=== PATIENT | female | born 2000 | race Hispanic/Latino ===

== ENCOUNTER 2019-04-17 20:41 | Emergency (ER) | payer OTHER ==
[2019-04-17 21:02] LABS: APPEARANCE,URINE Clear (CLEAR); BILIRUBIN,URINE Negative (NEGATIVE); COLOR,URINE Yellow (YELLOW); GLUCOSE, URINE (UA) Negative (NEGATIVE); KETONES,URINE Negative (NEGATIVE); LEUKOCYTE ESTERASE ,URINE Small (NEGATIVE); NITRATE,URINE Negative (NEGATIVE); OCCULT BLOOD,URINE Negative (NEGATIVE); PH,URINE 6.5 (5.0-8.0); PROTEIN,URINE Negative (NEGATIVE)
[2019-04-17 21:06] LABS: HCG,QUAL RESULT NEGATIVE (NEGATIVE)
[2019-04-17 21:12] LABS: BACTERIA,URINE Few /HPF (None Seen); MUCUS,URINE Few LPF (None Seen)
== END 2019-04-17 22:41 | disposition home or self-care (01) ==
LOC: EDH 20:41
DX: N39.0 Urinary tract infection, site not specified (principal); N83.291 Other ovarian cyst, right side
CPT/HCPCS: 76856; 81001; 81025; 82948; 87077; 87088; 87186

== ENCOUNTER 2022-06-12 15:11 | Emergency (ER) | payer MEDICAID ==
[~2022-06-12] VITALS: Ht 182.9 cm; Wt 61.2 kg
[2022-06-12] MEDS ORDERED: IBUPROFEN 600 MG TABLET PO ONE (15:30)
[2022-06-12] MEDS ORDERED: ACETAMINOPHEN 500 MG TABLET PO ONE (15:30)
[2022-06-12 15:36] LABS: BASOPHILS % (AUTO) 0.2 % (0.0-5.0); HEMATOCRIT 37.3 % (36-48); LYMPHOCYTES % (AUTO) 6.4 % (21.0-51.0); MEAN CORPUSCULAR HEMOGLOBIN 29.7 pg (27.0-33.0); MEAN CORPUSCULAR VOLUME 87.4 fL (79-99); MONOCYTES % (AUTO) 7.5 % (3.0-13.0); NEUTROPHILS % (AUTO) 85.5 % (40.0-77.0); PLATELET COUNT (AUTO) 147 K/uL (130-400); RED BLOOD CELL COUNT(AUTO) 4.27 MIL/uL (4.00-5.50); WHITE BLOOD COUNT (AUTO) 10.7 K/uL (4.8-10.8)
[2022-06-12 15:42] LABS: POTASSIUM 3.4 mmol/L (3.5-5.1)
[2022-06-12 15:48] LABS: ALBUMIN 3.9 g/dL (3.5-5.0); TOTAL PROTEIN, SERUM 8.2 g/dL (6.0-8.3)
[2022-06-12 15:50] VITALS: BP 123/73
[2022-06-12 16:06] LABS: APPEARANCE,URINE CLOUDY (CLEAR); BILIRUBIN,URINE NEGATIVE (NEGATIVE); COLOR,URINE LIGHT-YELLOW (YELLOW); GLUCOSE, URINE (UA) NEGATIVE (NEGATIVE); KETONES,URINE 40 mg/dL (NEGATIVE); LEUKOCYTE ESTERASE ,URINE 250 Leu/uL (NEGATIVE); NITRATE,URINE NEGATIVE (NEGATIVE); OCCULT BLOOD,URINE LARGE (NEGATIVE); PH,URINE 5.5 (5.0-8.0); PROTEIN,URINE 30 mg/dL (NEGATIVE); UROBILINOGEN,URINE 0.2 mg/dL (0.2-1.0)
[2022-06-12 16:13] LABS: HCG,QUALITATIVE URINE NEGATIVE (NEGATIVE)
[2022-06-12 16:15] LABS: BACTERIA,URINE MOD /HPF (None Seen); RBC,URINE TNTC /HPF (0-1); SQUAMOUS EPITHELIAL CELL,UR FEW /HPF (0-2); WBC,URINE 51-100 /HPF (0-1)
[2022-06-12] MEDS ORDERED: CEFTRIAXONE 1G VIAL IVP ONE (16:20)
[2022-06-12] MEDS ORDERED: AMOX1TAB16 PO (16:22)
[2022-06-12] MEDS ORDERED: LIDOCAINE HCL-MPF 2% 5ML VIAL ONE (16:22)
[2022-06-12] MEDS ORDERED: ONDANSETRON ODT 4MG TAB ONE (16:43)
[2022-06-12] MEDS ORDERED: ONDANSETRON ODT 4MG TAB SL ONE (17:00)
== END 2022-06-12 17:27 | disposition home or self-care (01) ==
LOC: EDH 15:11
DX: N39.0 Urinary tract infection, site not specified (principal); R50.9 Fever, unspecified; R11.2 Nausea with vomiting, unspecified; Z20.822 Contact with and (suspected) exposure to COVID-19
CPT/HCPCS: 99284; 96374; 87635; 80053; 85025; 87077; 87088; 87186; 87804 ×2; 81001; 81025; 36415; C9803; J0696 ×2; J3490

== ENCOUNTER 2023-05-31 12:49 | Emergency (ER) | payer MEDICAID, OTHER ==
[~2023-05-31] VITALS: Ht 165.1 cm; Wt 63.5 kg
[~2023-05-31 12:49] MED LIST: AMOX1TAB16 PO
[2023-05-31 13:51] LABS: BASOPHILS # (AUTO) 0.01 K/uL (0.00-0.20); BASOPHILS % (AUTO) 0.2 % (0.0-5.0); EOSINOPHILS # (AUTO) 0.07 K/uL (0.00-0.70); EOSINOPHILS % (AUTO) 1.2 % (0.0-8.0); HEMATOCRIT 35.6 % (36-48); IMMATURE GRANULOCYTE ABSOLUTE 0.01 K/uL (0-1); LYMPHOCYTES # (AUTO) 1.1 K/uL (1.0-4.8); LYMPHOCYTES % (AUTO) 18.3 % (21.0-51.0); MEAN CORPUSCULAR HEMOGLOBIN 31.1 pg (27.0-33.0); MEAN CORPUSCULAR HGB CONC 35.4 g/dL (32.0-36.0); MEAN CORPUSCULAR VOLUME 87.9 fL (79-99); MONOCYTES # (AUTO) 0.3 K/uL (0.1-1.0); MONOCYTES % (AUTO) 5.6 % (3.0-13.0); NEUTROPHILS # (AUTO) 4.5 K/uL (1.8-7.7); NEUTROPHILS % (AUTO) 74.5 % (40.0-77.0); PLATELET COUNT (AUTO) 200 K/uL (130-400); RED BLOOD CELL COUNT(AUTO) 4.05 MIL/uL (4.00-5.50); RED CELL DISTRIBUTION WIDTH 13.1 % (11.0-15.5); WHITE BLOOD COUNT (AUTO) 6.1 K/uL (4.8-10.8)
[2023-05-31 14:01] LABS: CREATININE 0.7 mg/dL (0.5-1.5); POTASSIUM 4.2 mmol/L (3.5-5.1)
[2023-05-31 14:05] LABS: ALBUMIN 3.7 g/dL (3.5-5.0); BILIRUBIN,TOTAL 1.2 mg/dL (0.2-1.0); TOTAL PROTEIN, SERUM 7.5 g/dL (6.0-8.3)
[2023-05-31 15:00] LABS: APPEARANCE,URINE CLEAR (CLEAR); BILIRUBIN,URINE NEGATIVE (NEGATIVE); COLOR,URINE LIGHT-YELLOW (YELLOW); GLUCOSE, URINE (UA) NEGATIVE (NEGATIVE); KETONES,URINE NEGATIVE (NEGATIVE); LEUKOCYTE ESTERASE ,URINE NEGATIVE Leu/uL (NEGATIVE); NITRATE,URINE NEGATIVE (NEGATIVE); OCCULT BLOOD,URINE NEGATIVE (NEGATIVE); PROTEIN,URINE NEGATIVE (NEGATIVE); UROBILINOGEN,URINE 0.2 mg/dL (0.2-1.0)
[2023-05-31 15:04] LABS: HCG,QUALITATIVE URINE NEGATIVE (NEGATIVE)
[2023-05-31 15:05] LABS: ADD UA MICROSCOPIC YES
[2023-05-31 15:06] LABS: BACTERIA,URINE FEW /HPF (None Seen); RBC,URINE 0-1 /HPF (0-1); SQUAMOUS EPITHELIAL CELL,UR MOD /HPF (0-2)
[2023-05-31] MEDS ORDERED: DICY20TA2 PO (18:19)
[2023-05-31] MEDS ORDERED: DICYCLOMINE HCL 10 MG/5 ML ML PO ONE (18:30)
[2023-05-31] MEDS ORDERED: IBUPROFEN 600 MG TABLET PO ONE (18:30)
[2023-05-31 18:35] VITALS: BP 120/70; PULSE 65; RESP 17; O2SAT 98
== END 2023-05-31 18:41 | disposition home or self-care (01) ==
LOC: EDH 12:49
DX: R10.30 Lower abdominal pain, unspecified (principal); Z98.890 Other specified postprocedural states
CPT/HCPCS: 36415; 76856; 80053; 81001; 81025; 83690; 85025

== ENCOUNTER 2024-06-12 10:32 | Emergency (ER) | payer SELFPAY ==
[~2024-06-12] VITALS: Ht 162.6 cm; Wt 63.5 kg
[~2024-06-12 10:32] MED LIST changes: +DICY20TA2 PO; +NAPR-1180 PO
--- NOTE | 2024-06-12 12:04 | HMCIMG ---
Exam Type: US PELVIC NON-OB LIMITED Clinical Information: r/o hemorrhagic ovarian cyst Comparison: None Findings: The examination shows an anteverted uterus which is normal in size and echogenicity. It measures 7.2 x 3.8 x 4.7 cm. The endometrial lining is normal in thickness. It measures 5 mm. No intrauterine or ectopic seen. The ovaries are normal in size and echogenicity. The right ovary measures 3.1 x 1.6 x 2.4 cm. The left ovary measures 3.5 x 2.6 x 2 .8 cm. Vascular Doppler flow exam and spectral analysis of waveforms analysis is unremarkable bilaterally. There is preserved vascularity to both ovaries on Doppler evaluation. Specifically, there is no evidence of ovarian torsion. No free fluid is noted throughout the cul-de-sac. There are no adnexal abnormalities. No other significant abnormalities are seen. No fluid collections or masses or free fluid are identified in the pelvis. Impression: NORMAL EXAM. No evidence of uterine pathology. No evidence of adnexal abnormalities or ovarian torsion. No intrauterine or ectopic seen.
[2024-06-12 12:05] LABS: APPEARANCE,URINE CLEAR (CLEAR); BILIRUBIN,URINE NEGATIVE (NEGATIVE); COLOR,URINE LIGHT-YELLOW (YELLOW); GLUCOSE, URINE (UA) NEGATIVE (NEGATIVE); KETONES,URINE NEGATIVE (NEGATIVE); LEUKOCYTE ESTERASE ,URINE NEGATIVE Leu/uL (NEGATIVE); NITRATE,URINE NEGATIVE (NEGATIVE); OCCULT BLOOD,URINE NEGATIVE (NEGATIVE); PH,URINE 5.5 (5.0-8.0); PROTEIN,URINE NEGATIVE (NEGATIVE); UROBILINOGEN,URINE 0.2 mg/dL (0.2-1.0)
[2024-06-12 12:10] LABS: ADD UA MICROSCOPIC NO; HCG,QUALITATIVE URINE NEGATIVE (NEGATIVE)
--- NOTE | 2024-06-12 12:11 | ERN ---
General Chief Complaint: Pelvic Pain Stated Complaint: PELVIC PAIN Time Seen by MD: 10:34 Time Seen by Midlevel: 10:34 Source: patient History of Present Illness Initial Comments Patient is a 23-year-old female with a past medical history fatty liver disease presenting to the emergency department with left lower quadrant abdominal pain. The patient states this morning she had a sudden onset of pain to the left lower quadrant area. She does report having a history of ovarian cysts was concerned that she may have an ovarian torsion versus hemorrhagic ovarian cyst. She does report seeing a primary care doctor in [place] for other abdominal complaints that she has been having over the last couple of days. She was currently pending blood work and an ultrasound of the right upper quadrant area. Today she specifically denies any dysuria, hematuria, vaginal bleeding, or any other symptoms. Denies being . Allergies: Coded Allergies: No Known Drug Allergies (Unverified Allergy, Unknown, 04/18/19) Home Meds Active Scripts Naproxen (Naprosyn) 500 Mg Tablet, 500 MG PO BIDPC for 10 Days, #20 TAB 0 Refills Prov:JOON COLORADO MD 10/05/23 Dicyclomine HCl (Bentyl) 20 Mg Tab, 20 MG PO TID PRN for ABDOMINAL PAIN, #15 TAB Prov:LILA VELARDE THEATRE PROFESSOR 05/31/23 Amoxicillin/Potassium Clav (Amox Tr-K Clv 875-125 mg Tab) 1 Each Tablet, 1 EACH PO BID for 10 Days, #20 TAB Prov:ANGELA MCPHERSON V THEATRE PROFESSOR 06/12/22 Past Medical History Past Medical History: No Pertinent History Past Surgical History: Other Surgical History Other: BILATERAL FEET Family History Family History: Negative Social History Social History: Negative, Lives with family Female( History) History: Not Applicable LMP: May 19, 2024 ROS Dictation CONSTITUTIONAL: Negative except for HPI HEAD/FACE: Negative except for HPI EENT: Negative except for HPI RESPIRATORY: Negative except for HPI GASTROINTESTINAL/ABDOMINAL: Negative except for HPI GENITOURINARY: Negative except for HPI MUSCULOSKELETAL: Negative except for HPI INTEGUMENTARY: Negative except for HPI NEUROLOGICAL/PSYCH: Negative except for HPI HEMATOLOGIC/LYMPHATIC: Negative except for HPI All Systems Negative, Except as noted above. 13 point review of systems assessed and all negative except for above. Physical Exam Physical Exam Dictation Vital Signs reviewed General Appearance: Alert, oriented x 3, no acute distress, well developed, nourished. Head and Face: non-traumatic. Eyes: PERRL, pink conjunctivas, eyelid no trauma, anterior chamber with arcus senilis. Ears: Pinnas intact and no signs of trauma or erythema ear canals clear and no discharge TM no erythema Nose: No discharge, no bleeding. Oropharynx: Mouth normal, tongue pink, pharynx clear,no erythema, tonsils no exudates, no abscesses noted, mucous membrane moist Neck: Supple, non-tender, no thyromegaly, no masses, no JVD, no bruits Breast:Deferred Chest:No tenderness, no crepitus, no paradoxical movement, no retractions Lungs:Clear, well-ventilated, symmetric, no rales, no wheezing, no rhonchi, no stridor, good breath sounds bilaterally Heart: Regular rate, regular rhythm, no murmur, no gallops Vascular: no peripheral edema, Abdomen: Soft, positive bowel sounds, nondistended, no guarding, nontender, no rebound, no masses no hepatomegaly, no splenomegaly, no Coronado's sign, no hernias. Rectal: Deferred Genital: Deferred Neurological: Normal speech, motor function intact, sensory function intact Musculoskeletal: Neck nontender, full range of motion, back nontender, full range of motion, Extremities: nontender, full range of motion Skin: Color pink, dry, no turgor, no rash, no lacerations, no abrasions, no contusions. Lymphatic: Deferred Results Laboratory and Microbiology Lab and Micro Result Laboratory Tests Test 06/12/24 11:41 Urine Color LIGHT-YELLOW (YELLOW) Urine Appearance CLEAR (CLEAR) Urine pH 5.5 (5.0-8.0) Urine Specific [place] 1.012 (1.001-1.031) Urine Protein NEGATIVE mg/dL (NEGATIVE) Urine Glucose (UA) NEGATIVE mg/dL (NEGATIVE) Urine Ketones NEGATIVE mg/dL (NEGATIVE) Urine Occult Blood NEGATIVE (NEGATIVE) Urine Nitrate NEGATIVE (NEGATIVE) Urine Bilirubin NEGATIVE mg/dL (NEGATIVE) Urine Urobilinogen 0.2 mg/dL (0.2-1.0) Urine Leukocyte Esterase NEGATIVE Murphy/uL Urine HCG, Qualitative NEGATIVE (NEGATIVE) MDM MDM: Patient is a 23-year-old female with a past medical history fatty liver disease presenting to the emergency department with left lower quadrant abdominal pain. The patient states this morning she had a sudden onset of pain to the left lower quadrant area. She does report having a history of ovarian cysts was concerned that she may have an ovarian torsion versus hemorrhagic ovarian cyst. She does report seeing a primary care doctor in [place] for other abdominal complaints that she has been having over the last couple of days. She was currently pending blood work and an ultrasound of the right upper quadrant area. Today she specifically denies any dysuria, hematuria, vaginal bleeding, or any other symptoms. Denies being . On arrival initial vital signs are stable. The patient is in no acute respiratory distress. Physical examination is unremarkable. Abdominal examination is benign. There was no tenderness, rebound, or guarding. Patient states her pain did significantly improved since arriving to the ER. A pelvic ultrasound was ordered to rule out an ovarian torsion versus a hemorrhagic cyst given her history. Urinalysis was also obtained which does not reveal any evidence of infection. test is negative. Ectopic ruled out. Pelvic ultrasound is completely normal. No evidence of hemorrhagic cyst or ovarian torsion. Patient was advised to continue her follow up with her doctor in [place] tomorrow as sche duled. She was to return to the ER if she develops any new or worsening symptoms. Differential diagnosis: Ovarian torsion, urinary tract infection, hemorrhagic ovarian cyst There are no social concerns with this patient. Prescription drug management Prescriptions will include: None Medical management and examination interpretation discussions were had by me with other qualified healthcare professionals as indicated for the patient's care. ED Course Orders Procedure Category Date Status Time Urinalysis Profile LAB 06/12/24 Complete 10:48 ,Urine Test LAB 06/12/24 Complete 10:48 Us Pelvic Non-Ob US 06/12/24 Resulted Limited 10:48 Vital Signs Date Time Temp Pulse Resp B/P (MAP) Pulse Ox O2 Delivery O2 Flow Rate FiO2 06/12/24 12:48 97.2 74 20 120/84 99 Room Air* 0 21 06/12/24 10:50 97.2 74 20 120/84 99 0 [facility] [address] [place] [id number] IMAGING REPORT Signed PATIENT: REKHA VIVAS MR#: [id number] : 2000 SEX: F AGE: 23 LOCATION: [facility] ORDER 1050 STATUS: REG ER REPORT#: [id number] SERVICE 1048 REASON: r/o hemorrhagic ovarian cyst ORDERING PHYSICIAN: DELORES MCNAMARA PROCEDURE: PELVLTD - US PELVIC NON-OB LIMITED Exam Type: US PELVIC NON-OB LIMITED Clinical Information: r/o hemorrhagic ovarian cyst Comparison: None Findings: The examination shows an anteverted uterus which is normal in size and echogenicity. It measures 7.2 x 3.8 x 4.7 cm. The endometrial lining is normal in thickness. It measures 5 mm. No intrauterine or ectopic seen. The ovaries are normal in size and echogenicity. The right ovary measures 3.1 x 1.6 x 2.4 cm. The left ovary measures 3.5 x 2.6 x 2 .8 cm. Vascular Doppler flow exam and spectral analysis of waveforms analysis is unremarkable bilaterally. There is preserved vascularity to both ovaries on Doppler evaluation. Specifically, there is no evidence of ovarian torsion. No free fluid is noted throughout the cul-de-sac. There are no adnexal abnormalities. No other significant abnormalities are seen. No fluid collections or masses or free fluid are identified in the pelvis. Impression: NORMAL EXAM. No evidence of uterine pathology. No evidence of adnexal abnormalities or ovarian torsion. No intrauterine or ectopic seen. DICTATED BY: SHARATH CARLSON MD DATE: 06/12/24 1159 ELECTRONICALLY SIGNED BY: SHARATH CARLSON MD DATE: 06/12/24 1204 DX & DISP Disposition: Discharge Departure Impression: Primary Impression: Wellness examination Condition: Stable Additional Instructions: Your pelvic ultrasound today is unremarkable. There was no evidence of ovarian torsion or a hemorrhagic ovarian cyst. Your urinalysis does not show any evidence of infection. Your test was negative. Please follow up with your doctor in [place] for your ultrasound and lab work results. Referrals: SELF,REFERRAL (PCP) I have reviewed the case, and I agree with, Diagnosis and Plan I performed the substantive portion of the visit. I have reviewed and personally made and approve the management plan that is documented in the note by myself or the MADDIE. I acknowledge for responsibility for the patient's management plan. DELORES MCNAMARA Jun 12, 2024 12:11 ALFA LAYNE DO Jun 13, 2024 07:40
[2024-06-12 12:48] VITALS: BP 120/84; PULSE 74; RESP 20; TEMP 97.2; O2SAT 99
== END 2024-06-12 12:58 | disposition home or self-care (01) ==
LOC: EDH 10:32
DX: R10.32 Left lower quadrant pain (principal); Z79.899 Other long term (current) drug therapy
CPT/HCPCS: 76857; 81003; 81025; 99284